=== PATIENT | female | born 1965 | race Two or more races ===

== ENCOUNTER → 2016-09-03 | Outpatient (CLI) | payer MEDICAID ==
--- NOTE | 2016-09-03 19:19 | DX ---
AP Supine Abdomen Reason for examination: Evaluate for pancreatic stent. Findings: No radiopaque foreign body is seen projecting over the upper abdomen to suggest a pancreati c stent. The bowel gas pattern is normal. No free air is identified on this supine study. Moderate fecal material is seen scattered throughout the colon. No small bowel dilatation is identified. Oss eous structures are negative for acute abnormality. Surgical clips in the pelvis are presumably related to tubal ligation. Impression: A pancreatic stent is not visualized.
== END ==
LOC: CIMAGING 10:56
PROVIDERS: ATTEND Internal Medicine Gastroenterology
DX: R10.11 Right upper quadrant pain (principal); I10 Essential (primary) hypertension; K75.81 Nonalcoholic steatohepatitis (NASH)
CPT/HCPCS: 74000-PO; 80053-PO

== ENCOUNTER → 2018-04-05 | Outpatient (CLI) | payer MEDICAID | LOC: CIMAGING 10:04 | PROVIDERS: ATTEND Family Medicine | DX: M25.521 Pain in right elbow (principal); M79.621 Pain in right upper arm; M79.631 Pain in right forearm | CPT/HCPCS: 73060-PO; 73080-PO; 73090-PO ==